=== PATIENT | male | born 1970 | race Caucasian/White ===

== ENCOUNTER 2017-05-29 16:15 | Emergency (ER) | payer OTHER ==
[2017-05-29 16:36] VITALS: BP 105/67; PULSE 78; TEMP 98.2; BMI 34.4
[2017-05-29] MEDS ORDERED: CLINDAMYCIN IVPB 300 MG in DEXTROSE 5%-WATER - 48 ML IVPB ONE (17:03)
--- NOTE | 2017-05-29 17:04 | PDOC ---
Attending Attestation - Resident Resident Name: AbramsAlexis - ED Attending Attestation I have performed the following: I have examined & evaluated the patient, The case was reviewed & discussed with the resident, I agree w/resident's findings & plan, Exceptions are as noted - HPI HPI: 05/29/17 17:03 Agree with the resident's HPI as documented in the electronic medical record. - Physicial Exam PE: 05/29/17 17:03 Agree with the resident's physical examination as documented in the electronic medical record. - Medical Decision Making 05/29/17 17:03 46-year-old male with history of anxiety and substance abuse, right hand dominant who presents to the emergency department with 2 day history of swelling and redness to the dorsum of the left hand. Differential diagnosis includes but is not limited to: Infected insect bite, cellulitis, ALLERGIC reaction, underlying fracture, retained foreign body. Plan: 1. Labs 2. Plain films 3. IV antibiotics with MRSA coverage 4. Observe and reevaluate
[2017-05-29] MEDS ORDERED: CLINDAMYCIN PHOSPHATE 300 MG/2 ML VIAL ONE (17:09)
--- NOTE | 2017-05-29 17:09 | PDOC ---
History of Present Illness - General Chief Complaint: Redness To Affected Area Stated Complaint: LEFT HAND REDNESS, SWELLING Time Seen by Provider: 05/29/17 16:25 - History of Present Illness Initial Comments: 05/29/17 17:46 46m with pmh of anxiety present to ED with a erythematous swollen lesion on the left hand for the past two days. The patient doesn't know how he got it and says that the swelling got worse. He complains of itchiness but no pain reported. He called his primary dr cordero who alessandra him to go to the er or to come back later. The patient is currently on Lipitor paxol, xanax prn and antacid medication. Past History - Past Medical History Allergies/Adverse Reactions: Allergies Allergy/AdvReac Type Severity Reaction Status Date / Time Penicillins Allergy Severe Hives Verified 05/29/17 16:24 Home Medications: Ambulatory Orders Atorvastatin Ca [Lipitor] 40 mg PO HS 05/29/17 Clindamycin [Cleocin -] 300 mg PO TID #21 capsule 05/29/17 Paroxetine HCl [Paxil -] 10 mg PO DAILY 05/29/17 Suicide Attempt (Hx): No Seizures: Yes - Immunization History Immunization Up to Date: Yes - Psycho/Social/Smoking Cessation Hx Anxiety: No Suicidal Ideation: No Smoking Status: Yes Smoking History: Current some day smoker Years of Tobacco Use: 30 Have you smoked in the past 12 months: Yes Number of Cigarettes Smoked Daily: 20 Information on smoking cessation initiated: Yes 'Breaking Loose' booklet given: 05/29/17 Drug/Substance Use Hx: Yes (baribtuates/benzos) Substance Use Type: Opiates, Prescribed, Tranquilizers Review of Systems - Review of Systems Constitutional: No: Chills, Diaphoresis, Fever, Night Sweats HEENTM: No: Symptoms Reported Respiratory: No: Symptoms reported Cardiac (ROS): No: Symptoms Reported ABD/GI: No: Symptoms Reported : No: Symptoms Reported Musculoskeletal: No: Joint Swelling, Muscle Pain, Muscle Weakness, Joint Stiffness Integumentary: Yes: Change in Color, Erythema, Pruritus Psychiatric: Yes: Anxiety *Physical Exam - Vital Signs Last Vital Signs Temp Pulse Resp BP Pulse Ox 98.2 F 78 18 105/67 97 05/29/17 16:15 05/29/17 16:15 05/29/17 16:15 05/29/17 16:15 05/29/17 16:15 - Physical Exam Comments: 05/29/17 17:56 patient admitted to having smoked marijuana. Injected sclera. General Appearance: Yes: Nourished, Intoxicated HEENT: positive: EOMI, Normal ENT Inspection Neck: positive: Supple. negative: Tender Respiratory/Chest: positive: Lungs Clear, Normal Breath Sounds Cardiovascular: positive: Regular Rhythm, Regular Rate, S1, S2 Gastrointestinal/Abdominal: positive: Normal Bowel Sounds, Flat, Soft. negative : Tender Extremity: positive: Normal Capillary Refill (dorsal erythematous non-purulent 5cm lesion with indurated epidermis, no fluctuence but dark hematoma. Puncture site apparent surronded by vesicle. unclear crepitus on auscultation.), Normal Range of Motion, Swelling. negative: Tender Integumentary: positive: Dry, Warm, Erythema ED Treatment Course - LABORATORY CBC & Chemistry Diagram: 05/29/17 17:10 Medical Decision Making - Medical Decision Making 05/29/17 18:22 46M with pmh of anxiety presents with swollen, erythematous infected-looking wound on dorsum of left hand. Doesnt remember how he got it. Hand xray negative. labs negative. Patient given clindamycin IV as well as a 7day course of clindamycin PO outpatient. Foolowq up with primary. *DC/Admit/Observation/Transfer Diagnosis at time of Disposition: Hand abrasion, infected - Discharge Dispostion Disposition: HOME Condition at time of disposition: Good - Prescriptions Prescriptions: Clindamycin [Cleocin -] 300 mg PO TID #21 capsule
[2017-05-29 17:36] LABS: EOSINOPHIL 4.2 % (0-4.5); MCH 30.6 pg (25.7-33.7); MCHC 33.5 g/dl (32.0-35.9); MEAN CELL VOLUME 91.3 fl (80-96); MEAN PLT VOLUME 8.9 fl (7.5-11.1); NEUTROPHILS 50.2 % (42.8-82.8); PLATELET COUNT 158 K/MM3 (134-434); RDW 12.5 % (11.9-15.9); WHITE BLOOD COUNT 5.9 K/mm3 (4.0-10.8)
== END 2017-05-29 18:32 | disposition home or self-care (01) ==
LOC: FER 16:15
DX: S60.512A Abrasion of left hand, initial encounter (principal); F17.210 Nicotine dependence, cigarettes, uncomplicated; X58.XXXA Exposure to other specified factors, initial encounter; Y93.9 Activity, unspecified; Y92.9 Unspecified place or not applicable
CPT/HCPCS: 36415; 73130-TC-LT; 85025; 99282-25

== ENCOUNTER 2018-07-14 10:50 | Emergency (ER) | payer OTHER ==
[2018-07-14 11:05] VITALS: TEMP 98.9; BMI 27.2
--- NOTE | 2018-07-14 11:10 | PDOC ---
History of Present Illness - General Chief Complaint: Altered Mental Status Stated Complaint: AMS Time Seen by Provider: 07/14/18 11:03 - History of Present Illness Initial Comments: 07/14/18 11:06 48 yo M with h/o seizure disorder, anxiety, opioid dependence on methadone maintenance, and substance abuse who p/w AMS. [place] [employer], sleeping, and not answering questions, but responsive. Patient noted to be incorporative by EMS, and vitals signs were normal. Patient states that he experienced seizure yesterday evening while at home. Seizure witnessed by mother, who is not present. Patient states that convulsions lasted 5 minutes and he fell backward onto his couch. Does not recall hitting his head. Denies neck or back pain/trauma. States that his mother assisted him to lateral decubitus position,and denies tongue biting, but endorsed urinary incontinence. 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 Patient denies WILLS, cough, wheezing, palpitations, N/V, F,C, CP, SOB, urinary complaints, abdominal pain, diarrhea, constipation, lightheadedness, weakness, sensory changes. PMHx: as noted above ROS: as noted SHx: Tobacco use 2 PPD 20+ years. Denies Etoh, IVDA. Patient endorses marijuanna edibles for seizure control. Allergies: NKDA Past History - Past Medical History Allergies/Adverse Reactions: Allergies Allergy/AdvReac Type Severity Reaction Status Date / Time Penicillins Allergy Severe Hives Verified 05/29/17 16:24 Home Medications: Ambulatory Orders Atorvastatin Ca [Lipitor] 40 mg PO HS 05/29/17 Clindamycin [Cleocin -] 300 mg PO TID #21 capsule 05/29/17 Paroxetine HCl [Paxil -] 10 mg PO DAILY 05/29/17 COPD: No DVT: No Seizures: Yes - Immunization History Immunization Up to Date: Yes - Suicide/Smoking/Psychosocial Hx Smoking Status: Yes Smoking History: Current every day smoker Years of Tobacco Use: 30 Have you smoked in the past 12 months: Yes Number of Cigarettes Smoked Daily: 20 Information on smoking cessation initiated: Yes 'Breaking Loose' booklet given: 05/29/17 Drug/Substance Use Hx: Yes Substance Use Type: Opiates, Prescribed, Tranquilizers Review of Systems - Review of Systems Comments:: 07/14/18 11:08 GENERAL/CONSTITUTIONAL: No fever or chills. No weakness. HEAD, EYES, EARS, NOSE AND THROAT: No change in vision. No ear pain or discharge. No sore throat. CARDIOVASCULAR: No chest pain or shortness of breath RESPIRATORY: No cough, wheezing, or hemoptysis. GASTROINTESTINAL: No nausea, vomiting, diarrhea or constipation. GENITOURINARY: No dysuria, frequency, or change in urination. MUSCULOSKELETAL: No joint or muscle swelling or pain. No neck or back pain. SKIN: No rash NEUROLOGIC: No headache, vertigo, loss of consciousness, or change in strength/ sensation. ENDOCRINE: No increased thirst. No abnormal weight change HEMATOLOGIC/LYMPHATIC: No anemia, easy bleeding, or history of blood clots. ALLERGIC/IMMUNOLOGIC: No hives or skin allergy. *Physical Exam - Vital Signs Last Vital Signs Temp Pulse Resp BP Pulse Ox 98.9 F 86 18 125/76 100 07/14/18 10:59 07/14/18 10:59 07/14/18 10:59 07/14/18 10:59 07/14/18 10:59 - Physical Exam Comments: 07/14/18 11:08 GENERAL: Somnolent/drowsy on exam, but arousable to verbal stimuli, and responsive to questions. Awake, alert, and fully oriented, in no acute distress HEAD: No signs of trauma, normocephalic, atraumatic EYES: + Pinpoint pupils. PERRLA, EOMI, sclera anicteric, conjunctiva clear ENT: Auricles normal inspection, hearing grossly normal, nares patent, oropharynx clear without exudates. Moist mucosa NECK: Normal ROM, supple, no lymphadenopathy, JVD, or masses LUNGS: No distress, speaks full sentences, clear to auscultation bilaterally HEART: Regular rate and rhythm, normal S1 and S2, no murmurs, rubs or gallops, peripheral pulses normal and equal bilaterally. ABDOMEN: Soft, nontender, normoactive bowel sounds. No guarding, no rebound. No masses. EXTREMITIES : Normal inspection, Normal range of motion, no edema. No clubbing or cyanosis. NEUROLOGICAL: Cranial nerves II through XII grossly intact. +slurred/pressured speech, +ataxic gait, no focal sensorimotor deficits. Neg dysemtria on FTN. Normal KEVIN. SKIN: Warm, Dry, normal turgor, no rashes or lesions noted ED Treatment Course - LABORATORY CBC & Chemistry Diagram: 07/14/18 11:26 07/14/18 11:26 Medical Decision Making - Medical Decision Making 07/14/18 11:30 48 yo M with h/o seizure disorder, anxiety, opioid dependence on methadone maintenance, and substance abuse BIBA with AMS after found to be hypersomnolent on train bench. VSS, AF, A&OX3, somnolent, but arousable to verbal stimuli with slurred speech, and wobbly gait. R/o CVA/TIA, SAH, hematoma. No evidence of basilar skull fracture on physical exam. Suspect intoxication state. Will consider postictal state/possible seizure, hydrocephalus. Will evaluate for electrolyte abnml, metabolic and toxic derangements, acid-base disturbances, and infection. Low suspicion meningitis. Ed Course. 07/14/18 11:35 CBC,CMP, CK 07/14/18 13:05 CBC,CMP: Unremarkable CK: 1056 07/14/18 15:37 Bladder U/S: CC 176 Pre void following 2 L NS *DC/Admit/Observation/Transfer Diagnosis at time of Disposition: Dehydration Altered mental status Qualifiers: Altered mental status type: somnolence Qualified Code(s): R40.0 - Somnolence - Discharge Dispostion Condition at time of disposition: Stable Decision to Admit order: No - Referrals Referrals: Chuy Mcintyre MD [Primary Care Provider] - - Patient Instructions Printed Discharge Instructions: DI for Altered Mental Status Additional Instructions: Please return to the emergency department with any new or worsening symptoms or concerns. Please follow up with your primary care physician within 72 hours. - Post Discharge Activity - Attestations Physician Attestion: 07/14/18 11:09 I attest to the information provided in this note.
[2018-07-14 11:30] LABS: BASO % 0.5 % (0-2.0); EOS % 3.3 % (0-4.5); HEMOGLOBIN 12.5 GM/dl (11.7-16.9); LYMPH % 44.8 % (8-40); MCH 30.8 pg (25.7-33.7); MCHC 33.7 g/dl (32.0-35.9); MEAN CELL VOLUME 91.5 fl (80-96); MEAN PLT VOLUME 8.6 fl (7.5-11.1); MONO % 7.2 % (3.8-10.2); NEUT % 44.2 % (42.8-82.8); PLATELET COUNT 190 K/MM3 (134-434); RBC 4.04 M/mm3 (4.00-5.60); RDW 13.2 % (11.9-15.9); WHITE BLOOD COUNT 5.9 K/mm3 (4.0-10.8)
[2018-07-14 12:22] LABS: ALBUMIN 4.1 g/dl (3.5-5.0); ALK PHOS 51 U/L (32-92); ANION GAP 6 MMOL/L (8-16); BILIRUBIN,TOTAL 0.5 mg/dl (0.2-1.0); BLOOD UREA NITROGEN 16 mg/dl (7-18); CALCIUM 8.8 mg/dl (8.4-10.2); CHLORIDE 106 mmol/L (98-107); CO2 25 mmol/L (22-28); CREATININE 0.8 mg/dl (0.6-1.3); GLUCOSE,RANDOM 86 mg/dl (74-106); POTASSIUM 3.8 mmol/L (3.5-5.1); SGOT/AST 33 U/L (10-42); SGPT/ALT 18 U/L (10-40); SODIUM 137 mmol/L (136-145); TOT PROT 7.4 g/dl (6.4-8.3)
--- NOTE | 2018-07-14 13:03 | PDOC ---
Attending Attestation - Resident Resident Name: Jaciel Worthington - ED Attending Attestation I have performed the following: I have examined & evaluated the patient, The case was reviewed & discussed with the resident, I agree w/resident's findings & plan, Exceptions are as noted - HPI HPI: 07/14/18 12:59 48 yo male with h/o polysubstance abuse, siezure disorder [place] ems [place] found sleeping on a bench, was stuporous with depressed mental status. pt denies recent seizure today, last seizure was yesterday. does take methadone, denies taking extra meds today. denies etoh or drug use today. states he smokes regularily. no c/;o headache. no n/v no other complaints. - Physicial Exam PE: 07/14/18 13:01 drowsy but awake, eyes open . pin point pupils bilaterally heart rrr nomrg. abd soft nt nd. ext wwp . gait unsteady. nonfocal. speech loud, slurred. alert oriented x 3. - Medical Decision Making 07/14/18 13:02 differential post ictal, intox such as etoh or benzo or opiates. non focal. plan u tox labs reassess for sobriety. pt etoh negative. utox pending urinalysis. lkley benzo or opiate intox. labs otherwise unremarkable. mild ck elevation 07/14/18 15:38 pt dehyderated given 2 L NS. after words bladder with 176 ml . pt more awake alert dc to home,. pt mother came to ed to pick him up.
[2018-07-14] MEDS ORDERED: SODIUM CHLORIDE 1,000 ML IV STA (13:17)
[2018-07-14 15:39] VITALS: BP 122/76; PULSE 80
== END 2018-07-14 15:57 | disposition home or self-care (01) ==
LOC: FER 10:50
PROC: 3E0337Z Introduction of Electrolytic and Water Balance Substance into Peripheral Vein, Percutaneous Approach (ICD-10-PCS; principal; 2018-07-14)
DX: E86.0 Dehydration (principal); R40.0 Somnolence; F15.20 Other stimulant dependence, uncomplicated; F41.9 Anxiety disorder, unspecified; Z79.891 Long term (current) use of opiate analgesic
CPT/HCPCS: 36415; 80053; 80307; 82550; 82553; 85025; 99282-25; J7030

== ENCOUNTER 2021-09-08 10:05 | Emergency (ER) | payer OTHER ==
[2021-09-08 10:21] VITALS: BMI 30.1
[2021-09-08 12:39] VITALS: BP 105/68; PULSE 63; TEMP 98.8
== END 2021-09-08 13:03 | disposition home or self-care (01) ==
LOC: FER 10:05
DX: F11.10 Opioid abuse, uncomplicated (principal)
CPT/HCPCS: 82962; 99283-25

== ENCOUNTER 2022-02-04 10:12 | Emergency (ER) | payer OTHER ==
[2022-02-04] MEDS ORDERED: SODIUM CHLORIDE 1,000 ML IV ONE (10:18)
[2022-02-04] MEDS ORDERED: NALOXONE HCL 0.4 MG/ML VIAL IVPUSH ONE (10:18)
[2022-02-04 10:46] VITALS: BMI 30.1
[2022-02-04 12:44] VITALS: BP 111/76; PULSE 73; TEMP 98
== END 2022-02-04 12:42 | disposition home or self-care (01) ==
LOC: FER 10:12 → SUPCPDRO 10:12 → FER 12:42
PROC: 3E033NZ Introduction of Analgesics, Hypnotics, Sedatives into Peripheral Vein, Percutaneous Approach (ICD-10-PCS; principal; 2022-02-04)
PROC: 3E0337Z Introduction of Electrolytic and Water Balance Substance into Peripheral Vein, Percutaneous Approach (ICD-10-PCS; 2022-02-04)
DX: T42.4X2A Poisoning by benzodiazepines, intentional self-harm, initial encounter (principal)
CPT/HCPCS: 90471; 99284-25

== ENCOUNTER 2022-03-06 10:09 | Emergency (ER) | payer OTHER ==
[2022-03-06 10:26] VITALS: BMI 77.5
[2022-03-06] MEDS ORDERED: SODIUM CHLORIDE 0.9% 500 ML INFUS.BAG IV ONE ×2 (10:26→11:04)
[2022-03-06] MEDS ORDERED: ONDANSETRON 4 MG/2 ML VIAL IVPB ONE (10:26)
[2022-03-06 10:45] LABS: HEMOGLOBIN 13.4 G/dL (11.7-16.9); MCH 32.5 pg (25.7-33.7); MCHC 35.1 g/dl (32.0-35.9); MEAN CELL VOLUME 92.5 fl (80-96); MEAN PLT VOLUME 8.6 fl (7.5-11.1); PLATELET COUNT 214.3 10^3/uL (134-434); RBC 4.11 10^6/uL (4.00-5.60); RDW 13.9 % (11.9-15.9)
[2022-03-06] MEDS ORDERED: ONDANSETRON 4 MG/2 ML VIAL ONE (10:45)
[2022-03-06 10:58] LABS: BILIRUBIN,TOTAL 0.4 mg/dl (0.2-1); CALCIUM 9.4 mg/dl (8.5-10); CREATININE 0.9 mg/dl (0.55-1.3); TOT PROT 7.6 g/dl (6.4-8.2)
[2022-03-06 11:49] LABS: PLATELET ESTIMATE ADEQUATE
[2022-03-06 11:59] LABS: VENOUS O2 SATURATION 28.9 % (70-80); VENOUS PCO2 59.5 mmHg (38-52); VENOUS PH 7.267 (7.310-7.410)
[2022-03-06 13:32] LABS: N-TERMINAL BNP 75.3 pg/ml (5-125)
[2022-03-06] MEDS ORDERED: DOXYCYCLINE HYCLATE 100 MG VIAL ONE (14:32)
[2022-03-06 15:19] VITALS: BP 121/1; PULSE 70; TEMP 98.5
== END 2022-03-06 16:05 | disposition home or self-care (01) ==
LOC: FER 10:09
PROC: 3E033GC Introduction of Other Therapeutic Substance into Peripheral Vein, Percutaneous Approach (ICD-10-PCS; principal; 2022-03-06)
DX: T40.2X1A Poisoning by other opioids, accidental (unintentional), initial encounter (principal)
CPT/HCPCS: 36415; 70450-TC; 71045-TC-FY; 72125-TC; 80053; 80307; 82803; 83880; 84484; 85027; 93005; 99291

== ENCOUNTER 2023-05-20 20:15 | Inpatient (IN) | payer OTHER ==
[2023-05-20 20:41] VITALS: RESP 18; BMI 30.1
[2023-05-20] MEDS ORDERED: SODIUM CHLORIDE 0.9% 500 ML INFUS.BAG IV ONE (21:13)
[2023-05-20 22:35] LABS: BASO % 0.3 % (0-2.0); EOS % 0.1 % (0-4.5); HEMATOCRIT 37.9 % (35.4-49); HEMOGLOBIN 12.7 GM/dL (11.7-16.9); LYMPH % 13.3 % (8-40); MCH 29.9 pg (25.7-33.7); MCHC 33.6 g/dl (32.0-35.9); MEAN CELL VOLUME 89.1 fl (80-96); MEAN PLT VOLUME 8.4 fl (7.5-11.1); NEUT % 79.3 % (42.8-82.8); PLATELET COUNT 211 10^3/uL (134-434); RBC 4.25 M/mm3 (4.00-5.60); RDW 13.9 % (11.9-15.9); WHITE BLOOD COUNT 11.9 K/mm3 (4.0-10.0)
[2023-05-20 23:26] LABS: POTASSIUM 4.2 mmol/L (3.5-5.1)
[2023-05-20 23:28] LABS: CALCIUM 9.5 mg/dL (8.5-10.1)
[2023-05-20 23:29] LABS: ALBUMIN 3.8 g/dl (3.4-5.0); BLOOD UREA NITROGEN 15.6 mg/dL (7-18)
[2023-05-20 23:32] LABS: CREATININE 0.9 mg/dL (0.55-1.3)
[2023-05-20 23:33] LABS: BILIRUBIN,TOTAL 0.2 mg/dL (0.2-1); TOT PROT 7.4 g/dl (6.4-8.2)
[2023-05-21] MEDS ORDERED: PANTOPRAZOLE SODIUM 40 MG VIAL IVPUSH ONE (00:34)
[2023-05-21] MEDS ORDERED: ONDANSETRON 4 MG/2 ML VIAL IVPUSH ONE (00:34)
[2023-05-21] MEDS ORDERED: ONDANSETRON 4 MG/2 ML VIAL ONE (00:41)
[2023-05-21] MEDS ORDERED: PANTOPRAZOLE SODIUM 40 MG VIAL ONE (00:41)
[2023-05-21] MEDS ORDERED: LACTATED RINGERS SOLUTION 1,000 ML/1,000 ML INFUS.BAG IV SCH (00:45)
[2023-05-21] MEDS ORDERED: ALPRAZolam 1 MG TABLET PO SCH ×2 (06:00→07:00)
[2023-05-21] MEDS ORDERED: levETIRAcetam 500 MG TABLET (FP) PO SCH (07:00)
[2023-05-21] MEDS ORDERED: OLANZapine 5 MG TABLET PO SCH ×2 (07:00→10:00)
[2023-05-21] MEDS ORDERED: ENOXAPARIN NA (PORCINE) 40 MG/0.4 ML DISP.SYRIN SQ SCH ×2 (07:00→10:00)
[2023-05-21] MEDS ORDERED: methaDONE HCL 10 MG TABLET PO SCH ×2 (07:00→10:00)
[2023-05-21] MEDS ORDERED: OXCARBAZEPINE 300 MG PO SCH (07:00)
[2023-05-21 07:41] VITALS: BP 104/68; PULSE 67; TEMP 97.8
[2023-05-21] MEDS ORDERED: methaDONE HCL 10 MG TABLET ONE (08:41)
[2023-05-21] MEDS ORDERED: levETIRAcetam 500 MG TABLET (FP) PO ONE (08:42)
[2023-05-21] MEDS ORDERED: ENOXAPARIN NA (PORCINE) 40 MG/0.4 ML DISP.SYRIN SQ ONE (08:43)
[2023-05-21] MEDS ORDERED: methaDONE 40 MG, methaDONE 20 MG PO SCH (08:45)
[2023-05-21] MEDS ORDERED: PATIENT'S OWN MEDICATION (NON-FORMULARY) (Oxcarbazepine [Oxtellar Xr] 600 MG Tab.Er.24h) PO SCH (10:00)
[2023-05-21] MEDS ORDERED: PATIENT'S OWN MEDICATION (NON-FORMULARY) (Levetiracetam [Levetiracetam] 1,000 MG Tablet) PO SCH (10:00)
== END 2023-05-21 10:23 | disposition left against medical advice (07) | DRG 53 ==
LOC: JER 20:15 → JERBED 05-21 00:44 → OBSVTOIN 05-21 05:11
PROVIDERS: ADMIT Internal Medicine
DX: G40.909 Epilepsy, unspecified, not intractable, without status epilepticus (principal); F11.20 Opioid dependence, uncomplicated; F17.210 Nicotine dependence, cigarettes, uncomplicated; Z88.0 Allergy status to penicillin; F41.9 Anxiety disorder, unspecified
CPT/HCPCS: 36415; 70450-TC; 71045-TC-FY; 72125-TC; 80053; 80177; 82962; 84484; 85025; 93005; 93010; 99285-25; G0378